=== PATIENT | female | born 1995 | race Caucasian/White ===

== ENCOUNTER 2019-11-22 00:01 | Observation (INO) | payer BC, SELFPAY ==
[2019-11-22 00:30] VITALS: BMI 35.2
--- NOTE | 2019-11-22 03:24 | OBADM ---
This patient, Liliana Ybarra, admitted to the OB room Labor/Delivery/Recovery 106 for observation. Patient/family oriented to hospital policies and general routines including ID bracelet, bed and alarms, visiting hours, pain management, procedures, bathroom and other care routines, personal items, smoking policy, room service/diet, and visiting hours. Patient/Family are encouraged to report perceived risks to care and to ask questions if they do not understand what they are told or what they should do.
--- NOTE | 2019-11-22 03:32 | PC.NURSE ---
pharmacist called and medication from [facility] discussed and confirmed.
[2019-11-22] MEDS: MORPHINE SULFATE 10 MG/ML AMP IM (03:44)
[2019-11-22 03:49] VITALS: BP 106/61; PULSE 76
[2019-11-22 04:00] VITALS: BP 93/47; PULSE 59
[2019-11-22 04:13] VITALS: BP 102/66; PULSE 66; TEMP 36.7
--- NOTE | 2019-11-26 09:00 | PM.OBTRLD ---
OB - Triage/Final Diagnosis Visit Information Reason for evaluation: threatened labor
== END 2019-11-22 04:12 | disposition home or self-care (01) ==
PROVIDERS: Admitting Provider Obstetrics & Gynecology; Visit Provider Obstetrics & Gynecology
DX: O47.1 False labor at or after 37 completed weeks of gestation (principal); Z3A.37 37 weeks gestation of pregnancy
CPT/HCPCS: 96372; G0378; G0379; J2270

== ENCOUNTER 2019-11-22 09:28 | Inpatient (IN) | payer BC, SELFPAY ==
[2019-11-22] VITALS (120 sets, daily range): BP systolic 78–143; BP diastolic 31–108; PULSE 65–198; RESP 15–20; TEMP 36.3–38.4; O2SAT 94–100
--- NOTE | 2019-11-22 10:05 | LDADM ---
This patient, Liliana Ybarra, was admitted to Labor/Delivery/Recovery 108 on 11/22/19 at 09:28. Plans for labor, pain management and were discussed with patient. Patient/family oriented to hospital policies and general routines including ID bracelet, bed and alarms, visiting hours, pain management, procedures, bathroom and other care routines, personal items, smoking policy, room service/diet and guest tray routines, security routines, and visiting hours. Patient/Family are encouraged to report perceived risks to care and to ask questions if they do not understand what they are told or what they should do. See OBIX for further documentation.
[2019-11-22 10:12] LABS: Basophils Percent Auto 0.2 % (0.2-1.2); Eosinophils Percent Auto 0.1 % (0-4.4); Hematocrit 40.9 % (37.0-47.0); Hemoglobin 13.6 g/dL (12.0-15.0); Immature Granulocyte Absolute 0.06 K/mm3 (0.00-0.031); Immature Granulocyte Percent A 0.4 % (0-0.5); Lymphocytes Absolute Auto 1.23 K/mm3 (0.9-3.2); Lymphocytes Percent Auto 7.6 % (18.3-44.2); Mean Corpuscular HGB Conc 33.3 g/dl (32-36); Mean Corpuscular Hemoglobin 29.2 pg (26-34); Mean Corpuscular Volume 87.8 fl (80-100); Mean Platelet Volume 11.2 fl (7.4-10.4); Monocytes Absolute Auto 0.9 K/mm3 (0.1-0.6); Monocytes Percent Auto 5.4 % (2.6-8.5); Neutrophils Absolute Auto 14.1 K/mm3 (1.3-6.7); Neutrophils Percent Auto 86.3 % (45.5-73.1); Platelet Count Result 238 k/mm3 (150-375); Red Blood Count 4.66 M/mm3 (4.2-5.4); Red Cell Distribution Width 13.6 % (11.5-14.5); White Blood Count 16.3 K/mm3 (4.5-10.0)
[2019-11-22] MEDS: LACTATED RINGERS 1,000 ML 125 ML IV CONT ×3 (10:13→15:38)
--- NOTE | 2019-11-22 10:27 | P.PNAN_ITS ---
Anes - Initial Pre Proc Eval Date/Time: 11/22/19 10:27 Surgeon: Ryan Villanueva MD Pre Op Diagnosis: Labor Patient Data Age: 24 Gender: F Height: Weight: Last Vital Signs Temp 36.3 C L 11/22/19 10:14 Pulse 91 11/22/19 10:15 BP 122/84 11/22/19 10:15 Allergies Allergy/AdvReac Type Severity Reaction Status Date / Time No Known Allergies Allergy Verified 11/09/19 14:21 Home Medications Medication Instructions Recorded Confirmed Type PNV cmb#95-ferrous fumarate-FA 1 tablet PO DAILY 11/09/19 11/09/19 History [] Laboratory Tests 11/22/19 11/22/19 10:06 10:06 WBC 16.3 K/mm3 H K/mm3 (4.5-10.0) RBC 4.66 M/mm3 M/mm3 (4.2-5.4) Hgb 13.6 g/dL g/dL (12.0-15.0) Hct 40.9 % % (37.0-47.0) MCV 87.8 fl fl (80-100) MCH 29.2 pg pg (26-34) MCHC 33.3 g/dl g/dl (32-36) RDW 13.6 % % (11.5-14.5) Plt Count 238 k/mm3 k/mm3 (150-375) MPV 11.2 fl H fl (7.4-10.4) Immature Gran % (Auto) 0.4 % % (0-0.5) Neut % (Auto) 86.3 % H % (45.5-73.1) Lymph % (Auto) 7.6 % L % (18.3-44.2) Nicholas % (Auto) 5.4 % % (2.6-8.5) Eos % (Auto) 0.1 % % (0-4.4) Baso % (Auto) 0.2 % % (0.2-1.2) Lymph # (Auto) 1.23 K/mm3 K/mm3 (0.9-3.2) Nicholas # (Auto) 0.9 K/mm3 H K/mm3 (0.1-0.6) Eos # (Auto) 0.0 K/mm3 K/mm3 (0-0.3) Baso # (Auto) 0.0 K/mm3 K/mm3 (0.0-0.1) Abs Immat Gran (auto) 0.06 K/mm3 H K/mm3 (0.00-0.031) Absolute Neuts (auto) 14.1 K/mm3 H K/mm3 (1.3-6.7) Absolute Nucleated RBC 0.0 K/mm3 K/mm3 (0.0-0.012) Nucleated RBC % 0.0 % % (0.0-0.2) RPR Pending Patient hx anesthesia problems: none Family hx anesthesia problems: none [facility] Family History Family History (Updated 11/09/19 @ 14:22 by Prasanna Rizzo RN) Other No pertinent family history Social History Social History Smoking status: Never smoker Second hand tobacco smoke exposure: No Substance use: never Gender identity (if verbalized by the patient): Female Spiritual care concerns: No Anes - Eval Final PreProcedure Day of Procedure 11/22/19 10:27 Patient weight: overweight Heart: regular rate and rhythm Lungs: clear to auscultation and normal air movement Airway: Mallampati scale class II Neurological: alert and oriented Last oral intake: >/= 8 hours ASA classification: II Emergent: no Anesthetic plan: proceed Anesthesia type and monitoring: regional epidural Informed Consent: The patient's anesthetic plan and its attendant risks and benefits were discussed with the patient/family/POA. Questions were solicited and answers provided to the satisfaction of the patient/family/POA.
[2019-11-22] MEDS: OXYTOCIN 30 UNITS/NS 500 ML 30 UNITS/500 ML BAG 6 UNITS IV CONT (12:54)
--- NOTE | 2019-11-22 16:35 | PM.IMHP ---
H&P: HPI History of Present Illness Chief complaint: Labor Narrative: Liliana Ybarra is a 24 year old female presented in labor early this morning with spontaneous rupture membranes and 4cm dilated. Progressed well through her labor and has pushed for 2 hours. With the pushing she has had minimal descent vacuum was placed 1 time with no further descent at this point decision was made to proceed with section. Review of Systems Review of Systems: All systems reviewed & are unremarkable except as noted in HPI and below PMFSH Family History Family History Other No pertinent family history Social History Social History Smoking status: Never smoker Second hand tobacco smoke exposure: No Substance use: never Gender identity (if verbalized by the patient): Female Spiritual care concerns: No Meds Home Medications and Allergies Home Medications Medication Instructions Recorded Confirmed Type PNV cmb#95-ferrous fumarate-FA 1 tablet PO DAILY 11/09/19 11/09/19 History [] Allergies Allergy/AdvReac Type Severity Reaction Status Date / Time No Known Allergies Allergy Verified 11/09/19 14:21 Vital Signs Vital Signs - 24 hr 11/22/19 10:14 11/22/19 10:15 11/22/19 10:30 Temperature 36.3 C L Pulse Rate 85 91 100 Blood Pressure 115/91 H 122/84 129/75 Pulse Oximetry 11/22/19 10:32 11/22/19 10:37 11/22/19 10:40 Temperature Pulse Rate 92 Blood Pressure 134/77 Pulse Oximetry 97 95 11/22/19 10:41 11/22/19 10:42 11/22/19 10:44 Temperature Pulse Rate 93 98 119 H Blood Pressure 134/82 127/67 123/77 Pulse Oximetry 97 11/22/19 10:46 11/22/19 10:47 11/22/19 10:48 Temperature Pulse Rate 136 H 107 H Blood Pressure 132/70 130/73 Pulse Oximetry 98 98 11/22/19 10:50 11/22/19 10:51 11/22/19 10:53 Temperature Pulse Rate 101 H 113 H Blood Pressure 120/67 114/64 Pulse Oximetry 99 11/22/19 10:54 11/22/19 10:55 11/22/19 10:57 Temperature Pulse Rate 120 H 119 H 100 Blood Pressure 121/71 115/70 124/68 Pulse Oximetry 11/22/19 10:58 11/22/19 11:00 11/22/19 11:03 Temperature Pulse Rate 102 H Blood Pressure 120/68 Pulse Oximetry 97 100 11/22/19 11:04 11/22/19 11:08 11/22/19 11:10 Temperature Pulse Rate 103 H 102 H Blood Pressure 133/84 119/69 Pulse Oximetry 99 11/22/19 11:13 11/22/19 11:15 11/22/19 11:18 Temperature Pulse Rate 80 Blood Pressure 117/70 Pulse Oximetry 99 99 11/22/19 11:19 11/22/19 11:23 11/22/19 11:25 Temperature Pulse Rate 106 H 95 Blood Pressure 129/77 126/76 Pulse Oximetry 100 11/22/19 11:28 11/22/19 11:30 11/22/19 11:33 Temperature Pulse Rate 109 H Blood Pressure 129/87 Pulse Oximetry 99 99 11/22/19 11:35 11/22/19 11:38 11/22/19 11:39 Temperature Pulse Rate 92 96 Blood Pressure 98/75 L 113/76 Pulse Oximetry 99 11/22/19 11:43 11/22/19 11:45 11/22/19 11:48 Temperature Pulse Rate 91 Blood Pressure 111/72 Pulse Oximetry 100 100 11/22/19 11:49 11/22/19 11:53 11/22/19 11:58 Temperature Pulse Rate Blood Pressure 108/91 H Pulse Oximetry 100 100 11/22/19 11:59 11/22/19 12:00 11/22/19 12:03 Temperature 36.8 C Pulse Rate 107 H Blood Pressure 107/74 Pulse Oximetry 100 11/22/19 12:08 11/22/19 12:13 11/22/19 12:14 Temperature Pulse Rate 91 Blood Pressure 107/69 Pulse Oximetry 98 97 11/22/19 12:18 11/22/19 12:23 11/22/19 12:28 Temperature Pulse Rate Blood Pressure Pulse Oximetry 97 100 99 11/22/19 12:30 11/22/19 12:33 11/22/19 12:38 Temperature Pulse Rate 85 Blood Pressure 107/68 Pulse Oximetry 100 99 11/22/19 12:43 11/22/19 12:44 11/22/19 12:47 Temperature Pulse Rate 91 Blood Pressure 117/77 Pulse Oximetry 98 100 11/21
--- NOTE | 2019-11-22 16:37 | PM.OBPRVD ---
OB - Delivery Note Procedure Procedure: Procedures Operation Date: 11/22/19 16:00 <No data on this case meets the specified criteria> Intrapartal events: Ceph-Pelvic Disproportion (Arrest of descent) and Abnormal Presentation (Occiput posterior) Route of delivery: Specimen: No Estimated blood loss (mL): 800 Anesthesia type: Epidural Disposition: floor Narrative: Patient prepped and draped in usual manner for this procedure. Pfannenstiel incision was made this was then carried down to the fascia which was extended bilaterally the length of the skin incision. Superiorly and inferiorly dissected away from the rectus muscle which was then bluntly dissected peritoneum was readily entered. Bladder flap was developed and uterus scored with clear fluid noted. Vertex was delivered without difficulty rest of baby was delivered cord clamped cut and baby was passed off the operative field. Uterus sugars exteriorized and placenta was removed. Uterus was cleared of membranes and clots. Uterine incision was approximated using 0 Monocryl running interlocking manner with good approximation hemostasis noted was a small 1cm right lateral edge defect into the lower segment which was also rendered hemostatic using a 0 Monocryl running interlocking manner. Uterus was turned to the abdomen cleared of serosanguineous fluid and clots and the fascia was approximated 0 Vicryl left angle midline right of the midline subcutaneous tissue was approximated 0 plain suture and clinton were used to approximate skin edges. Also noted was the urine was blood tinged as had been high prior to delivery due to the extended pushing. [place] Baby Weeks of gestation at delivery: 37 Infant gender: Male Weight (pounds): 6 Weight (ounces): 6 score one minute: 8 score five minutes: 9
--- NOTE | 2019-11-22 17:27 | PC.NURSE ---
5355-Vaginal packing removed, no clots or bleeding
--- NOTE | 2019-11-22 19:15 | OBPPTRN ---
Patient transferred to post room #279 via stretcher. Support person present. Oriented to unit, room, information board, rooming in, admission packet and security measures. Patient verbalizes understanding. Infant with patient.
[2019-11-22] MEDS: KETOROLAC 30 MG/ML VIAL (*BKC) IV PUSH (19:48)
[2019-11-22] MEDS: KCL 20 MEQ/D5/0.45% SOD CHL 1,000 ML 125 ML IV CONT (21:04)
[2019-11-23 04:00] VITALS: BP 111/73; PULSE 102; RESP 16; TEMP 36.8; O2SAT 98
[2019-11-23] MEDS: IBUPROFEN 600 MG TABLET PO ×3 (04:47→23:48)
[2019-11-23 05:40] LABS: Basophils Absolute Auto 0.1 K/mm3 (0.0-0.1); Basophils Percent Auto 0.3 % (0.2-1.2); Eosinophils Percent Auto 0.1 % (0-4.4); Hematocrit 33.7 % (37.0-47.0); Hemoglobin 10.8 g/dL (12.0-15.0); Immature Granulocyte Absolute 0.07 K/mm3 (0.00-0.031); Immature Granulocyte Percent A 0.4 % (0-0.5); Lymphocytes Absolute Auto 1.28 K/mm3 (0.9-3.2); Lymphocytes Percent Auto 7.3 % (18.3-44.2); Mean Corpuscular Volume 90.6 fl (80-100); Mean Platelet Volume 11.2 fl (7.4-10.4); Monocytes Percent Auto 5.8 % (2.6-8.5); Neutrophils Percent Auto 86.1 % (45.5-73.1); Platelet Count Result 189 k/mm3 (150-375); Red Blood Count 3.72 M/mm3 (4.2-5.4); Red Cell Distribution Width 13.7 % (11.5-14.5); White Blood Count 17.5 K/mm3 (4.5-10.0)
[2019-11-23] MEDS: MULTIVIT/MIN/PREN/FOL AC/IRON TABLET 1 TAB PO (06:56)
[2019-11-23] MEDS: DOCUSATE SODIUM 100 MG CAPSULE PO ×2 (06:56→16:01)
[2019-11-23 08:50] VITALS: BP 95/56; PULSE 60; RESP 18; TEMP 36.7; O2SAT 97
--- NOTE | 2019-11-23 11:08 | P.PNOB_ITS ---
OB - PN: Subj Subjective Date/time seen: 11/23/19 11:08 Liliana is a 24yo now P1001 s/p pLTCS 2/2 arrest of descent. POD#1 This morning, she reports doing well. Her pain is controlled on the PO meds. She is ambulating w/o s/sx of anemia; already showered. She tolerated regular diet w/o issues. Her bleeding is normal. She is voiding without issue. She is breast feeding. She would like her son to get circumcised today. OB - PN: Obj Data Labs CBC & Chem 7: 11/23/19 04:46 Labs: Laboratory Results - last 24 hr 11/22/19 11/23/19 10:06 04:46 WBC 17.5 H RBC 3.72 L Hgb 10.8 L Hct 33.7 L MCV 90.6 MCH 29.0 MCHC 32.0 RDW 13.7 Plt Count 189 MPV 11.2 H Immature Gran % (Auto) 0.4 Neut % (Auto) 86.1 H Lymph % (Auto) 7.3 L Tripp % (Auto) 5.8 Eos % (Auto) 0.1 Baso % (Auto) 0.3 Lymph # (Auto) 1.28 Tripp # (Auto) 1.0 H Eos # (Auto) 0.0 Baso # (Auto) 0.1 Abs Immat Gran (auto) 0.07 H Absolute Neuts (auto) 15.0 H Absolute Nucleated RBC 0.0 Nucleated RBC % 0.0 Blood Type O Positive Antibody Screen Negative OB - PN A/P Assessment and Plan (1) Arrest of descent, delivered, current hospitalization: Code(s): O62.1 - Secondary uterine inertia Status: Acute Plan day: 1 Plan: routine care Comments: - Routine care; meeting appropriate milestones - Vitals, labs, and abdominal exam normal - Pain meds PRN - Regular diet - Possible discharge home tomorrow Time Spent With Patient Time: Total time spent is greater than 50% in coordination of care (as documented) at patient's floor/unit and/or counseling patient: Review of Systems Constitutional: Constitutional: Denies body ache(s) and Denies chills Cardiovascular: Cardiovascular: Denies rapid heart rate Respiratory: Respiratory: Denies cough and Denies dyspnea Gastrointestinal: Gastrointestinal: Denies nausea and Denies vomiting Genitourinary: Genitourinary: Reports pelvic pain Neurologic: Denies headache(s) Exam Const: General: comfortable, no acute distress, alert and awake Chest: Breast/axilla inspection: normal inspection of the breasts Resp: Effort & Inspection: normal respiratory effort Auscultation: clear to auscultation bilaterally Cardio: Rate: regular rate GI: Auscultation: normal bowel sounds Other: non-distended, soft, appropriately tender, Pfannenstiell incision c/d/i and covered with clinton : Other: fundus firm at umbilicus Psych: Appearance: grossly normal Affect: normal affect Attitude: cooperative
[2019-11-23 13:45] VITALS: BP 114/64; PULSE 83; RESP 98; TEMP 36.9; O2SAT 97
[2019-11-23] MEDS: ACETAMINOPHEN 325 MG TABLET 650 MG PO ×2 (16:02→21:23)
[2019-11-23] MEDS: TETANUS,DIPHTHERIA,AC PERTUSSIS ADULT (0.5 ML) BOOSTRIX IM (16:02)
--- NOTE | 2019-11-23 17:35 | WPDANLDPN2 ---
Anes-Prog Note L&D Date/Time: 11/23/19 17:35 Comfortable throughout: labor and section Neuraxial method: epidural Epidural/Spinal procedure site: clean & non-tender Neuro status: Neuro function grossly intact. Cardiovascular status: normal Respiratory status: normal Airway patency: baseline Mental status: baseline Post-Op hydration status: normal Vital Signs: Last Vital Signs Temp 36.9 C 11/23/19 13:45 Pulse 83 11/23/19 13:45 Resp 98 H 11/23/19 13:45 BP 114/64 11/23/19 13:45 Pulse Ox 97 11/23/19 13:45 I/O: Intake & Output 11/23/19 11/23/19 11/23/19 07:59 15:59 23:59 Intake Total 240 Output Total 600 Balance -600 240 Post-procedural complaints: none Patient feedback: Patient satisfied with anesthetic care.
--- NOTE | 2019-11-23 17:35 | WPDANLDNPN2 ---
Anes-Prog Note L&D-Neuraxial Date/Time: 11/23/19 17:35 Neuraxial medications: epidural PF morphine Opiod-related complaints: none Patient feedback: Patient satisfied with post-operative pain management.
[2019-11-23 19:49] VITALS: BP 99/60; PULSE 73; RESP 18; TEMP 36.8
[2019-11-24] MEDS: ACETAMINOPHEN 325 MG TABLET 650 MG PO ×2 (05:48→16:23)
[2019-11-24] MEDS: IBUPROFEN 600 MG TABLET PO ×2 (05:48→16:23)
[2019-11-24 08:00] VITALS: BP 113/67; PULSE 69; RESP 18; TEMP 36.2; O2SAT 97
[2019-11-24] MEDS: MULTIVIT/MIN/PREN/FOL AC/IRON TABLET 1 TAB PO (08:11)
[2019-11-24] MEDS: MEASLES,MUMPS,RUBELLA VACCINE 0.5 ML VIAL SUB-Q (08:11)
[2019-11-24] MEDS: DOCUSATE SODIUM 100 MG CAPSULE PO ×2 (08:11→16:23)
--- NOTE | 2019-11-24 09:19 | PM.OBPNVD ---
OB - PN: Subj Subjective Date/time seen: 11/24/19 09:19 Liliana is a 24yo now P1001 s/p pLTCS 2/2 arrest of descent. POD#2 This morning, she reports doing well and would like to go home. Her pain is controlled on the PO meds. She is ambulating w/o s/sx of anemia. She's tolerating regular diet w/o issues. Her bleeding is normal. She is voiding without issue. She is passing flatus, no BM. She is breast feeding. OB - PN: Obj Data Labs CBC & Chem 7: 11/23/19 04:46 OB - PN A/P Assessment and Plan (1) Arrest of descent, delivered, current hospitalization: Code(s): O62.1 - Secondary uterine inertia Status: Acute Plan day: 2 Plan: discharge home Comments: - Meeting all milestones and desires to be discharged home today. - Labs/vitals/exam normal - Pain/fever/bleeding/HTN return precautions discussed. Pelvic rest and no heavy lifting >10lbs. Take medications as prescribed - F/u in 7-10 days for staple removal. Time Spent With Patient Time: Total time spent is greater than 50% in coordination of care (as documented) at patient's floor/unit and/or counseling patient: Review of Systems Constitutional: Constitutional: Denies body ache(s) and Denies chills Cardiovascular: Cardiovascular: Denies rapid heart rate Respiratory: Respiratory: Denies cough and Denies dyspnea Gastrointestinal: Gastrointestinal: Denies abdominal pain, Denies nausea and Denies vomiting Genitourinary: Genitourinary: Reports pelvic pain Comments: normal bleeding Neurologic: Denies headache(s) Exam Const: General: comfortable, no acute distress, alert and awake Resp: Effort & Inspection: normal respiratory effort Auscultation: clear to auscultation bilaterally Cardio: Rate: regular rate GI: Auscultation: normal bowel sounds Other: non-distended, soft, Pfannenstiel incision intact w/o erythema, drainage, covered with clinton. : Other: fundus firm below umbilicus Psych: Appearance: grossly normal Attitude: cooperative
--- NOTE | 2019-11-24 12:11 | PC.NURSE ---
Patient viewed the discharge video Mother & Baby Care, The First Two Weeks . Patient was given the opportunity and encouraged to ask questions. Patient verbalized understanding of information shared and has been given the mother/baby guide for home reference.
[2019-11-24 21:00] VITALS: BP 111/83; PULSE 80; RESP 16; TEMP 36.8; O2SAT 100
[2019-11-25] MEDS: IBUPROFEN 600 MG TABLET PO ×2 (02:30→10:01)
[2019-11-25 07:06] LABS: Rapid Plasma Reagin Non-Reactive (NonReactive)
[2019-11-25 07:40] VITALS: BP 119/88; PULSE 66; RESP 18; TEMP 36.7
--- NOTE | 2019-11-25 08:00 | PC.NURSE ---
Pt introductions made and plan of care discussed per post op c section, pain management, breast feeding, daily care activities and pending discharge to home. PT verbalized understanding of such care.
[2019-11-25] MEDS: SIMETHICONE 80 MG TAB.CHEW PO (10:00)
[2019-11-25] MEDS: MULTIVIT/MIN/PREN/FOL AC/IRON TABLET 1 TAB PO (10:00)
[2019-11-25] MEDS: DOCUSATE SODIUM 100 MG CAPSULE PO (10:01)
[2019-11-25 10:02] VITALS: PULSE 66; RESP 18; O2SAT 100
--- NOTE | 2019-11-25 10:45 | PC.NURSE ---
PT received discharge instructions per procotol and verbalized understanding of such instructions.
--- NOTE | 2019-11-25 11:18 | PC.NURSE ---
PT discharged to home ambulatory accompanied by spouse and to waiting car. Follow up appointments confirmed
--- NOTE | 2019-11-27 07:19 | PM.OBDSVD ---
DS: Diagnosis Admitting Diagnosis Admitting Diagnosis: Encounter for supervision of normal , unspecified, unspecified trimester OB - DS: Summary OB Procedures : None OB Procedures Intrapartum: OB Procedures: : None Peripartum Data Procedures: Procedures Operation Date: 11/22/19 16:00 Actual Procedures Side Surgeon p Section Ryan Villanueva MD Time Spent with Patient Time attestation: Total time spent providing and/or coordinating discharge services: Discharge Plan Discharge Attending physician on discharge: Cheri Leyva Consulting providers: Eran Young Discharging Clinician: Cheri Leyva Anticipated Discharge Date/Time: 11/24/19 14:00 Patient Disposition: Home, Self-Care Activity: pelvic rest Diet: regular Discharge Instructions: Education: Mom and Baby Guide Given to: Mother Follow-Up: Call your delivering provider's office for an appointment to be seen in: 1 Week Mom and baby should come to the [facility] for the follow-up appointment. Appointment Date/Time: November 27, 2019 at 10:00 am What to expect at your follow-up visit: Blood Pressure Check Call [phone] if you are unable to keep your appointment time. BREAST CARE: 1. Wear a snug supportive bra. 2. For engorgement discomfort: Breast Feeding: A. Apply warm moist washcloths B. Express milk as needed to relieve engorgement C. Wear loose clothing Bottle Feeding: A. May apply ice packs 3. For sore nipples: A. Identify correct latch-on B. Apply warm moist washcloths before and after nursing C. Air dry nipples after nursing D. May apply Lansinoh cream to nipples ABDOMINAL INCISION: (if applicable) 1. Allow incision to air dry 2. Do NOT use lotions for powders on your incision 3. When showering, allow soap and water to run over the incision, but do not wash incision PERINEAL CARE: 1. Until bleeding stops, use your davey bottle after urinating 2. Change your pad frequently throughout the day 3. You may take sitz baths several times a day (fill your bathtub with warm water and soak for 20 minutes.) Do NOT bathe in the water 4. No tub baths until seen by your physician - You may shower ACTIVITY: 1. Rest as much as possible. 2. Do not exercise or lift anything heavier than your baby (such as laundry or other children.) 3. Avoid stairs or driving as much as possible. 4. Do not put anything into the vagina. No douching, tampons, or sexual activity until seen by physician. NOTIFY PHYSICIAN IF YOU HAVE ANY QUESTIONS OR IF ANY OF THE FOLLOWING SYMPTOMS OCCUR: 1. If your incision becomes red, swollen, or more painful than what you have experienced in the hospital. 2. If your vaginal bleeding becomes foul smelling. 3. If your vaginal bleeding becomes more heavy than a period or if your bleeding changes from pink to bright red. However, you may pass an occasional walnut-sized clot once or twice for the first week . 4. If you experience a sharp, shooting pain in you calves. 5. If you discover a hard, reddened area on your breast or if you experience flu-like symptoms. DIET: 1. Eat regular, well-balanced meals. 2. Drink plenty of fluids daily. If , drink to thirst.Pelvic rest, no heavy lifting >10lbs. Patient Instructions: Antibiotic Form Stand Alone Forms: General Discharge Information Follow-up/Referrals: Ryan Villanueva MD [Physician] - 1 Week (Follow up in 7-10 days for staple removal ) Discharge Medications: New acetaminophen [Mapap (acetaminophen)] 325 mg Tablet 650 mg PO Q6H PRN (Reason: Mild Pain (1-3)) 10 Days Qty: 40 RF: 0 hydrocodone-acetaminophen 5-325 mg Tablet 1 tab PO Q4H PRN (Reason: Moderate Pain (4-6)) 3 Days Qty: 18 RF: 0 docusate sodium 100 mg Capsule 100 mg PO BID 10 Days Qty: 20 RF:
[2019-11-27 10:18] VITALS: BP 130/86; PULSE 62; RESP 20; TEMP 36.4; O2SAT 100
== END 2019-11-25 11:18 | disposition home or self-care (01) | DRG 787 ==
LOC: ANHOB2 11-24 09:25 → ANHLDR 11-26 15:46 → ANHOB2 11-26 15:46
PROVIDERS: Obstetrics & Gynecology; Admitting Provider Obstetrics & Gynecology; Visit Provider Obstetrics & Gynecology
PROC: 10D00Z1 Extraction of Products of Conception, Low, Open Approach (ICD-10-PCS; CPT 59514; principal; 2019-11-22 16:00)
DX: O65.9 Obstructed labor due to maternal pelvic abnormality, unspecified (principal); O71.4 Obstetric high vaginal laceration alone; Z3A.37 37 weeks gestation of pregnancy; Z37.0 Single live birth; Z23 Encounter for immunization; O64.0XX0 Obstructed labor due to incomplete rotation of fetal head, not applicable or unspecified; O66.5 Attempted application of vacuum extractor and forceps; O62.1 Secondary uterine inertia; O32.4XX0 Maternal care for high head at term, not applicable or unspecified
CPT/HCPCS: 36415; 85025; 86592; 86850; 86900; 86901; 90710; 90715; A9270; J0131; J0690; J1885; J2405; J2590; J2795; J3010; J3480; J7120

== ENCOUNTER → 2021-12-02 15:57 | Outpatient (CLI) | payer BC, SELFPAY ==
--- NOTE | ~2021-12-02 | US_ITS ---
EXAMINATION: US OB /maternal detail DATE: 12/02/2021 16:31 INDICATION: Second trimester anatomic survey TECHNIQUE: Real-time ultrasound of the pelvis was performed. COMPARISON: 09/13/2021 FINDINGS: There is a single living fetus in breech presentation. The placenta is posterior and 5.3 cm from the internal cervical os. heart rate is 148 beats per minute (bpm). cardiac activity and fet al movement are noted. The amniotic fluid index is subjectively normal. The following anatomy was identified as normal: 4 chamber heart 3 vessel cord cord insertion kidneys urinary bladder stomach spine diaphragm ventricles cisterna magna cerebellum The following biometric data were obtained: Biparietal diameter (BPD): 5.4 cm; head circumference (HC): 20.1 cm; abdominal circumference (AC): 18 .4 cm; femur length (FL): 3.9 cm. These measurements are concordant. Estimated weight is 353 g +/- 80 g, which correlates with the 40th percentile when 04/01/2022 is used as estimated date of delivery. As single measurements, these parameters are each equal to the following estimated gestational ages w ith ranges of +/- 2 standard deviations: BPD: 22 weeks 3 days ( 20 weeks 5 days - 24 weeks 1 days). HC: 22 weeks 2 days ( 20 weeks 5 days - 23 weeks 5 days). AC: 23 weeks 1 days ( 21 weeks 1 days - 25 weeks 2 days). FL: 22 weeks 3 days ( 20 weeks 5 days - 24 weeks 2 days). estimated gestational age based solely on measurements from this exam is 22 weeks 4 days +/- 1 weeks 4 days. IMPRESSION: 1. Single living fetus in breech presentation. 2. Estimated weight is 353 g +/- 80 g, which correlates with the 40th percentile when 04/01/2022 is used as estimated date of delivery. Reviewed, dictated and finalized at location A. IMPRESSION: 1. Single living fetus in breech presentation. 2. Estimated weight is 353 g +/- 80 g, which correlates with the 40th per centile when 04/01/2022 is used as estimated date of delivery.
== END ==
PROVIDERS: PCP Obstetrics & Gynecology; Visit Provider Obstetrics & Gynecology
DX: Z34.92 Encounter for supervision of normal pregnancy, unspecified, second trimester (principal); Z3A.22 22 weeks gestation of pregnancy
CPT/HCPCS: 76805

== ENCOUNTER 2022-03-23 06:18 | Inpatient (IN) | payer BC, SELFPAY ==
--- NOTE | 2022-02-28 16:00 | PC.NURSE ---
Verified with OR schedule and patient C/S 03/23/22 at 1030 Patient given requisition for lab draw on 03/22/22
--- NOTE | 2022-03-22 15:15 | PM.IMHP ---
H&P: HPI History of Present Illness Date/Time: 03/22/22 15:15 26-year-old 2 para 1001 female presents at 39 and half weeks gestation for repeat delivery. records are on the chart and no significant abnormalities with her care. We have offered and she has declined tubal ligation. Chief Complaint: Review of Systems Review of Systems: All systems reviewed & are unremarkable except as noted in HPI and below PMFSH Past Medical History Medical History Suppression of menstruation Surgical History Surgical History Delivery by section (11/22/19) primary c/s Breech Family History Family History Mother Hypertension Diabetes mellitus Father Heart attack Social History Social History Smoking status: Never smoker Second hand tobacco smoke exposure: No Substance use: never Gender identity (if verbalized by the patient): Female Spiritual care concerns: No Meds Home Medications and Allergies Home Medications Medication Instructions Recorded Confirmed Type vit no.95-ferrous 1 tablet PO DAILY 11/09/19 03/15/22 History fumarate 28 mg-folic acid 800 mcg tablet () Allergies Allergy/AdvReac Type Severity Reaction Status Date / Time No Known Allergies Allergy Verified 03/15/22 17:17 Exam Const: General: cooperative, healthy appearing and comfortable Resp: Effort & Inspection: normal respiratory effort Auscultation: clear to auscultation bilaterally Cardio: Rate: regular rate Rhythm: regular rhythm GI: Inspection: normal to inspection Auscultation: normal bowel sounds : Bimanual exam- vagina & uterus: enlarged ( fundal height 39cm heart tones 140) Assessment and Plan Assessment and plan (1) 39 weeks gestation of : Code(s): Z3A.39 - 39 weeks gestation of Status: Acute (2) Previous delivery affecting : Code(s): O34.219 - Maternal care for unspecified type scar from previous delivery Status: Acute Assessment and Plan: proceed with repeat low transverse section.
[2022-03-23] VITALS (56 sets, daily range): BP systolic 92–119; BP diastolic 42–79; PULSE 53–167; RESP 16–20; TEMP 36.3–36.6; O2SAT 95–100; BMI 35.3
--- OUTSIDE RECORDS SUMMARY | 2022-03-23 06:22 | XMS_ITS ---
:1995 Author Care Team Providers Name Role Phone Ryan Villanueva Primary Care Provider Unavailable Allergies Code Code System Name Reaction Severity Status Onset NKDA ? Medications Name Status Start Date Stop Date ? ? DOK 100 mg capsule Completed ? 12/13/2019 TAKE 1 CAPSULE BY MOUTH TWICE DAILY FOR 10 DAYS Flucelvax Quad (PF) 60 mcg (15 mcg x 4)/0.5 mL IM Comp leted ? 02/26/2021 syringe hydrocodone 5 mg-acetaminophen 325 mg tablet Completed ? 12/13/2019 TAKE 1 TABLET BY MOUTH EVERY 4 HOURS FO R 3 DAYS NEEDED FOR MODERATE PAIN(4 6) ibuprofen 600 mg tablet Completed ? 12/13/19 20 TAKE 1 TABLET BY MOUTH EVERY 6 HOURS FOR 10 DAYS NEEDED FOR CRAMPING Lo Loestrin Fe 1 mg-10 mcg (24)/10 mcg (2) tablet Completed ? 04/30/2018 Problems Name Status Onset Date Source ? Unknown 04/24/2019 History Procedures Date Name Performed by ? 11/22/2019 Section Information not avai lable Results Lab Results None recorded. Past Encounters 02/26/2021 Gynecologic Examination Ryan Villanueva MD: [address] , [address], [place] [address], Ph. Social History Tobacco Smoking Status Never Smoker Vaccine List Vaccine Type HPV, quadrivalent 11/29/2014 05/24/2015 HPV9 10/30/2014 Notes: COVID vaccine not received -lw Plan of Care
--- OUTSIDE RECORDS SUMMARY | 2022-03-23 06:22 | XMS_ITS ---
:1995 Author Care Team Providers Name Role Phone SIMA SHEIKH Primary Care Provider [phone] Allergies Code Code System Name Reaction Severity Status Onset NKDA ? Medications Name Status Start Date Stop Date ? ? DOK 100 mg capsule Completed ? 12/13/2019 TAKE 1 CAPSULE BY MOUTH TWICE DAILY FOR 10 DAYS Flucelvax Quad (PF) 60 mcg (15 mcg x 4)/0.5 mL Active ? Not available IM syringe hydrocodone 5 mg-acetaminophen 325 mg tablet Completed ? 12/13/2019 TAKE 1 TABLET BY MOUTH EVERY 4 HOURS FO R 3 DAYS NEEDED FOR MODERATE PAIN(4 6) ibuprofen 600 mg tablet Completed ? 12/13/19 20 TAKE 1 TABLET BY MOUTH EVERY 6 HOURS FOR 10 DAYS NEEDED FOR CRAMPING Lo Loestrin Fe 1 mg-10 mcg (24)/10 mcg (2) tablet Completed ? 04/30/2018 Notes: OTC PNV Problems Name Status Onset Date Source ? Unknown 04/24/2019 ? Procedures Date Name Performed by ? 11/22/2019 Section Information not avai labsara Notes: primary c/s 04/15/2019 US, Obstetric, Transvaginal In-House Res ults For Internal Use Onl y Do Not Delete/merge [id number] Results Lab Results Date Name Specimen Result Interpretation Description Value Range Status Address ? 01/27/2020 Pap, IG + ? Diagnosis: comment ? Roshni posey [facility]: Reflex HPV 120 Hi lls (16+18+45) Efren Jaeger ? ? ? Specimen c
[2022-03-23 07:09] LABS: Basophils Percent Auto 0.3 % (0.2-1.2); Eosinophils Absolute Auto 0.3 K/mm3 (0-0.3); Eosinophils Percent Auto 3.1 % (0-4.4); Hemoglobin 12.6 g/dL (12.0-15.0); Immature Granulocyte Absolute 0.04 K/mm3 (0.00-0.031); Immature Granulocyte Percent A 0.4 % (0-0.5); Lymphocytes Percent Auto 14.7 % (18.3-44.2); Mean Corpuscular HGB Conc 33.2 g/dl (32-36); Mean Corpuscular Hemoglobin 29.2 pg (26-34); Mean Corpuscular Volume 88.2 fl (80-100); Mean Platelet Volume 10.2 fl (7.4-10.4); Monocytes Absolute Auto 0.6 K/mm3 (0.1-0.6); Monocytes Percent Auto 6.1 % (2.6-8.5); Neutrophils Absolute Auto 7.7 K/mm3 (1.3-6.7); Neutrophils Percent Auto 75.4 % (45.5-73.1); Platelet Count Result 239 k/mm3 (150-375); Red Blood Count 4.31 M/mm3 (4.2-5.4); Red Cell Distribution Width 12.9 % (11.5-14.5); White Blood Count 10.2 K/mm3 (4.5-10.0)
[2022-03-23] MEDS: LACTATED RINGERS 1,000 ML 125 ML IV CONT (07:15)
--- NOTE | 2022-03-23 07:29 | WPDHPUPDATE1 ---
History and Physical Update Update Date/Time: 03/23/22 07:29 History and Physical has been reviewed, including an updated exam of the patient. There are NO changes in the patient's condition. Risks, benefits, and alternatives have been discussed and questions answered. Patient agrees to proceed with procedure.
[2022-03-23 07:57] LABS: Rapid Plasma Reagin Non-Reactive (NonReactive)
--- NOTE | 2022-03-23 08:38 | WPDANESEPP ---
Anes - Eval Pre Procedure Procedure: Operation Date: 03/23/22 09:00 Proposed Procedures p Repeat Section - Ryan Villanueva MD Date/Time: 03/23/22 08:38 Surgeon: Rich Preop Diagnosis: , previous Section Pre Op Diagnosis: c/s Patient Data Age: 26 Gender: F Height: 1.52 m Weight: 82 kg Last Vital Signs Pulse 67 03/23/22 08:16 BP 118/71 03/23/22 08:16 O2 Del Method Room Air 03/23/22 07:19 Allergies Allergy/AdvReac Type Severity Reaction Status Date / Time No Known Allergies Allergy Verified 03/15/22 17:17 Home Medications Medication Instructions Recorded Confirmed Type vit no.95-ferrous 1 tablet PO DAILY 11/09/19 03/23/22 History fumarate 28 mg-folic acid 800 mcg tablet () Laboratory Tests 03/23/22 03/23/22 03/23/22 06:48 06:48 07:32 WBC 10.2 K/mm3 H K/mm3 (4.5-10.0) RBC 4.31 M/mm3 M/mm3 (4.2-5.4) Hgb 12.6 g/dL g/dL (12.0-15.0) Hct 38.0 % % (37.0-47.0) MCV 88.2 fl fl (80-100) MCH 29.2 pg pg (26-34) MCHC 33.2 g/dl g/dl (32-36) RDW 12.9 % % (11.5-14.5) Plt Count 239 k/mm3 k/mm3 (150-375) MPV 10.2 fl fl (7.4-10.4) Immature Gran % (Auto) 0.4 % % (0-0.5) Neut % (Auto) 75.4 % H % (45.5-73.1) Lymph % (Auto) 14.7 % L % (18.3-44.2) [place] % (Auto) 6.1 % % (2.6-8.5) Eos % (Auto) 3.1 % % (0-4.4) Baso % (Auto) 0.3 % % (0.2-1.2) Lymph # (Auto) 1.50 K/mm3 K/mm3 (0.9-3.2) [place] # (Auto) 0.6 K/mm3 K/mm3 (0.1-0.6) Eos # (Auto) 0.3 K/mm3 K/mm3 (0-0.3) Baso # (Auto) 0.0 K/mm3 K/mm3 (0.0-0.1) Abs Immat Gran (auto) 0.04 K/mm3 H K/mm3 (0.00-0.031) Absolute Neuts (auto) 7.7 K/mm3 H K/mm3 (1.3-6.7) Absolute Nucleated RBC 0.0 K/mm3 K/mm3 (0.0-0.012) Nucleated RBC % 0.0 % % (0.0-0.2) RPR Non-reactive (NonReactive) Blood Type O Positive Antibody Screen Pending Patient hx anesthesia problems: none Family hx anesthesia problems: none Results Review: All pre-operative results and documents have been reviewed as part of the pre-operative evaluation. [facility] Past Medical History Medical History Suppression of menstruation Surgical History Surgical History Delivery by section (11/22/19) primary c/s Breech Family History Family History Mother Hypertension Diabetes mellitus Father Heart attack Social History Social History Smoking status: Never smoker Second hand tobacco smoke exposure: No Substance use: never Gender identity (if verbalized by the patient): Female Spiritual care concerns: No Exam Day of Procedure 03/23/22 08:38 Patient weight: obese Neurological: alert and oriented
--- NOTE | 2022-03-23 08:41 | WPDANESEPPF ---
Anes - Initial Pre Proc Eval Procedure: Operation Date: 03/23/22 09:00 Proposed Procedures p Repeat Section - Ryan Villanueva MD Date/Time: 03/23/22 08:41 Surgeon: Ryan Villanueva MD Pre Op Diagnosis: c/s Patient Data Age: 26 Gender: F Height: 1.52 m Weight: 82 kg Last Vital Signs Pulse 67 03/23/22 08:16 BP 118/71 03/23/22 08:16 O2 Del Method Room Air 03/23/22 07:19 Allergies Allergy/AdvReac Type Severity Reaction Status Date / Time No Known Allergies Allergy Verified 03/15/22 17:17 Home Medications Medication Instructions Recorded Confirmed Type vit no.95-ferrous 1 tablet PO DAILY 11/09/19 03/23/22 History fumarate 28 mg-folic acid 800 mcg tablet () Laboratory Tests 03/23/22 03/23/22 03/23/22 06:48 06:48 07:32 WBC 10.2 K/mm3 H K/mm3 (4.5-10.0) RBC 4.31 M/mm3 M/mm3 (4.2-5.4) Hgb 12.6 g/dL g/dL (12.0-15.0) Hct 38.0 % % (37.0-47.0) MCV 88.2 fl fl (80-100) MCH 29.2 pg pg (26-34) MCHC 33.2 g/dl g/dl (32-36) RDW 12.9 % % (11.5-14.5) Plt Count 239 k/mm3 k/mm3 (150-375) MPV 10.2 fl fl (7.4-10.4) Immature Gran % (Auto) 0.4 % % (0-0.5) Neut % (Auto) 75.4 % H % (45.5-73.1) Lymph % (Auto) 14.7 % L % (18.3-44.2) [place] % (Auto) 6.1 % % (2.6-8.5) Eos % (Auto) 3.1 % % (0-4.4) Baso % (Auto) 0.3 % % (0.2-1.2) Lymph # (Auto) 1.50 K/mm3 K/mm3 (0.9-3.2) [place] # (Auto) 0.6 K/mm3 K/mm3 (0.1-0.6) Eos # (Auto) 0.3 K/mm3 K/mm3 (0-0.3) Baso # (Auto) 0.0 K/mm3 K/mm3 (0.0-0.1) Abs Immat Gran (auto) 0.04 K/mm3 H K/mm3 (0.00-0.031) Absolute Neuts (auto) 7.7 K/mm3 H K/mm3 (1.3-6.7) Absolute Nucleated RBC 0.0 K/mm3 K/mm3 (0.0-0.012) Nucleated RBC % 0.0 % % (0.0-0.2) RPR Non-reactive (NonReactive) Blood Type O Positive Antibody Screen Negative Patient hx anesthesia problems: none Family hx anesthesia problems: none Results Review: All pre-operative results and documents have been reviewed as part of the pre-operative evaluation. [facility] Past Medical History Medical History Suppression of menstruation Surgical History Surgical History Delivery by section (11/22/19) primary c/s Breech Family History Family History Mother Hypertension Diabetes mellitus Father Heart attack Social History Social History Smoking status: Never smoker Second hand tobacco smoke exposure: No Substance use: never Gender identity (if verbalized by the patient): Female Spiritual care concerns: No Anes - Eval Final PreProcedure Day of Procedure 03/23/22 08:41 Patient weight: obese Heart: regular rate and rhythm Lungs: clear to auscultation Airway: Mallampati scale class II Neurological: alert and oriented Last oral intake: >/= 8 hours ASA classification: II Emergent: no Anesthetic plan: proceed Anesthesia type and monitoring: regional spinal and standard monitoring Results Review: All pre-operative results and documents have been reviewed as part of the pre-operative evaluation. Informed Consent: The patient's anesthetic plan and its attendant risks and benefits were discussed with the patient/family/POA. Questions were solicited and answers provided to the satisfaction of the patient/family/POA.
--- NOTE | 2022-03-23 10:08 | P.PCNOB_ITS ---
OB - Delivery Note Procedure Procedure: Procedures Operation Date: 03/23/22 09:00 <No data on this case meets the specified criteria> Events: Previous Delivery Route of delivery: Specimen: Yes Quantitative Blood Loss (ml): 385 Anesthesia type: Spinal Disposition: Floor Complications: None Narrative: Patient was prepped and draped in usual manner for this procedure. Pfannenstiel incision was made and carried down to the fascia which was incised bilaterally the length of the skin incision. Superiorly and inferiorly the fascia was then dissected away from the rectus muscles. Peritoneum was readily entered bladder flap developed without difficulty. Low transverse incision was made with clear fluid noted and this was extended the length of the lower segment. Vertex was delivered without difficulty the rest of baby as well. Cord clamped and cut and baby was passed off the operative field and the placenta was removed manually. Uterus was evacuated of clots and membranes and approximated using 0 Vicryl in a running interlocking manner with good approximation and hemostasis noted. Of note uterus was closed with 0 Monocryl, not 0 Vicryl. 0 Vicryl was used to approximate the fascia in a running manner which was done after all subfascial tissue was noted be hemostatic upon return of the uterus to the abdominal cavity. Subcutaneous tissue was approximated using 0 plain suture and clinton then used to approximate the skin edges. Patient was then sent to recovery room in stable condition. [place] Baby Weeks of gestation at delivery: 39 Infant gender: Female Weight (pounds): 6 Weight (ounces): 9 presentation: vertex Placenta delivery description: Manual Removal Cord Vessel Description: 3 Vessels score one minute: 9 score five minutes: 9 AMG Delivery Billing Delivery Delivery: Delivery Charge
[2022-03-23] MEDS: OXYTOCIN 30 UNITS/NS 500 ML 30 UNITS/500 ML BAG 125 UNITS IV CONT (10:55)
[2022-03-23] MEDS: LORATADINE 10 MG TABLET (10:56)
[2022-03-23] MEDS: KETOROLAC 30 MG/ML VIAL (*BKC) 15 MG IV PUSH (10:58)
[2022-03-23] MEDS: MORPHINE SULFATE INJ (*CRX) 10 MG/ML AMP 3 MG IV PUSH (12:15)
[2022-03-23] MEDS: KETOROLAC 30 MG/ML VIAL (*BKC) IV PUSH (13:48)
[2022-03-23] MEDS: ONDANSETRON INJ 4 MG/2 ML VIAL IV PUSH (13:56)
--- NOTE | 2022-03-23 13:58 | OBPPTRN ---
Patient transferred to post room # 284 via stretcher accompanied by infant and support person. Oriented to unit, room, information board, rooming in, admission packet and security measures. PT introductions made and plan of care discussed per post op c section, pain management, breast feeding, daily care activities. PT and spouse both recipients of such instructions this shift and no barriers to learning identified at this time. Patient verbalizes understanding.
[2022-03-23] MEDS: DEXTROSE 5%/0.45% SOD CHL 1,000 ML 125 ML IV CONT (15:40)
[2022-03-23] MEDS: LANOLIN (LANSINOH) 7.5 GM CREAM 1 APPLIC TOPICAL (15:41)
[2022-03-23] MEDS: SIMETHICONE 80 MG TAB.CHEW PO (17:14)
[2022-03-23] MEDS: DOCUSATE SODIUM 100 MG CAPSULE PO (17:14)
[2022-03-23] MEDS: IBUPROFEN 600 MG TABLET PO (22:00)
[2022-03-24 04:45] VITALS: BP 113/75; PULSE 86; RESP 18; TEMP 36.3; O2SAT 98
[2022-03-24 05:31] LABS: Basophils Absolute Auto 0.1 K/mm3 (0.0-0.1); Basophils Percent Auto 0.4 % (0.2-1.2); Eosinophils Absolute Auto 0.2 K/mm3 (0-0.3); Eosinophils Percent Auto 1.8 % (0-4.4); Hematocrit 32.7 % (37.0-47.0); Hemoglobin 10.5 g/dL (12.0-15.0); Immature Granulocyte Absolute 0.04 K/mm3 (0.00-0.031); Immature Granulocyte Percent A 0.3 % (0-0.5); Lymphocytes Absolute Auto 1.45 K/mm3 (0.9-3.2); Lymphocytes Percent Auto 12.1 % (18.3-44.2); Mean Corpuscular HGB Conc 32.1 g/dl (32-36); Mean Corpuscular Hemoglobin 29.2 pg (26-34); Mean Corpuscular Volume 91.1 fl (80-100); Mean Platelet Volume 10.4 fl (7.4-10.4); Monocytes Absolute Auto 0.8 K/mm3 (0.1-0.6); Neutrophils Absolute Auto 9.4 K/mm3 (1.3-6.7); Neutrophils Percent Auto 78.4 % (45.5-73.1); Platelet Count Result 223 k/mm3 (150-375); Red Blood Count 3.59 M/mm3 (4.2-5.4); Red Cell Distribution Width 13.1 % (11.5-14.5)
--- NOTE | 2022-03-24 07:34 | WPDANLDPN2 ---
Anes-Prog Note L&D Date/Time: 03/24/22 07:34 Comfortable throughout: section Neuraxial method: spinal Epidural/Spinal procedure site: clean & non-tender Neuro status: Neuro function grossly intact. Cardiovascular status: normal Respiratory status: normal Airway patency: baseline Mental status: baseline Post-Op hydration status: normal Vital Signs: Last Vital Signs Temp 36.3 C L 03/24/22 04:45 Pulse 86 03/24/22 04:45 Resp 18 03/24/22 04:45 BP 113/75 03/24/22 04:45 Pulse Ox 98 03/24/22 04:45 O2 Del Method Room Air 03/24/22 04:45 Pain score (VAS): 0 I/O: Intake & Output 03/23/22 03/23/22 03/24/22 15:59 23:59 07:59 Intake Total 2130 1130 300 Output Total 288 1000 1200 Balance 1842 130 -900 Post-procedural complaints: none Patient feedback: Patient satisfied with anesthetic care.
--- NOTE | 2022-03-24 07:34 | WPDANLDNPN2 ---
Anes-Prog Note L&D-Neuraxial Date/Time: 03/24/22 07:34 Neuraxial medications: intrathecal PF morphine Opiod-related complaints: none Patient feedback: Patient satisfied with post-operative pain management.
--- NOTE | 2022-03-24 08:04 | P.DS_ITS ---
DS: Admitting Diagnosis Discharge Date 03/25/2022 Admitting Diagnosis OB - DS: Summary OB Procedures : None OB Procedures Intrapartum: OB Procedures: : None Peripartum Data Procedures: Procedures Operation Date: 03/23/22 09:00 Actual Procedure Side Surgeon p Repeat Section Not Applicable Ryan Villanueva MD Time Spent with Patient Time attestation: Total time spent providing and/or coordinating discharge services: DS: Data Data Completed and Pending Labs on day of discharge: Labs from last 24 hours 03/24/22 03/23/22 04:16 07:32 WBC 12.0 H RBC 3.59 L Hgb 10.5 L Hct 32.7 L MCV 91.1 MCH 29.2 MCHC 32.1 RDW 13.1 Plt Count 223 MPV 10.4 Immature Gran % (Auto) 0.3 Neut % (Auto) 78.4 H Lymph % (Auto) 12.1 L [place] % (Auto) 7.0 Eos % (Auto) 1.8 Baso % (Auto) 0.4 Lymph # (Auto) 1.45 [place] # (Auto) 0.8 H Eos # (Auto) 0.2 Baso # (Auto) 0.1 Abs Immat Gran (auto) 0.04 H Absolute Neuts (auto) 9.4 H Absolute Nucleated RBC 0.0 Nucleated RBC % 0.0 Blood Type O Positive Antibody Screen Negative Discharge Plan Discharge Discharging Clinician: Ryan Villanueva Patient Disposition: Home, Self-Care Activity: as tolerated Diet: as tolerated Wound Care Instructions: incision open to air Discharge Instructions: clinton out next week in office Patient Instructions: Antibiotic Form Stand Alone Forms: General Discharge Information Follow-up/Referrals: Ryan Villanueva MD [Physician] - 3 Weeks Discharge Medications: New hydrocodone-acetaminophen 5-325 mg Tablet 1 tablet PO Q3H PRN (Reason: Moderate Pain (4-6)) Qty: 30 0RF ibuprofen 600 mg Tablet 600 mg PO Q6H PRN (Reason: Cramping) Qty: 30 0RF Continued PNV cmb#95-ferrous fumarate-FA [] 28 mg iron- 800 mcg Tablet 1 tablet PO DAILY Date of admission: 03/23/22 06:18 Primary Care Provider: UNKNOWN,DOCTOR Admitting Provider: Ryan Villanueva Attending physician on admission: Ryan Villanueva Condition: Stable
[2022-03-24 08:20] VITALS: BP 108/67; PULSE 72; RESP 18; TEMP 36.6; O2SAT 97
[2022-03-24 08:30] VITALS: PULSE 72; RESP 18; O2SAT 97
--- NOTE | 2022-03-24 08:30 | PC.NURSE ---
PT introductions made and plan of care discussed per post , post op c section, pain management, breast feeding, daily care activities. PT and spouse both recipients of such instructions and no barriers to learning noted at this time . PT received such instructions per one to one discussion, mom baby care guide and demonstrations this shift. PT verbalized understanding of such care.
[2022-03-24] MEDS: SIMETHICONE 80 MG TAB.CHEW PO ×2 (08:54→22:16)
[2022-03-24] MEDS: HYDROcodone/acetaminophen (*CRX) 5-325 MG TABLET 1 TAB PO ×3 (08:55→22:16)
[2022-03-24] MEDS: DOCUSATE SODIUM 100 MG CAPSULE PO ×2 (08:55→15:35)
[2022-03-24] MEDS: IBUPROFEN 600 MG TABLET PO ×3 (08:55→22:16)
[2022-03-24] MEDS: MULTIVIT/MIN/PREN/FOL AC/IRON TABLET 1 TAB PO (08:55)
--- NOTE | 2022-03-24 09:44 | PC.NURSE ---
[phone] Introductions were made, then consulted with patient to assess needs related to . Mother led the conversation with her?plans to feed?her infant and states the?experience so far has been going well with nursing [phone] without pain. (There's a little of tenderness that goes away after a few minutes) Resources provided for inpatient and outpatient services using a resource guide and mom/baby guide. Mother voiced understanding of information and will call if there is a request for assistance. Reported to primary RN.
[2022-03-24] MEDS: TETANUS,DIPHTHERIA,AC PERTUSSIS ADULT (0.5 ML) BOOSTRIX IM (15:35)
[2022-03-24 19:46] VITALS: BP 104/75; PULSE 56; RESP 18; TEMP 36.4; O2SAT 100
[2022-03-25] MEDS: IBUPROFEN 600 MG TABLET PO ×2 (04:40→10:14)
[2022-03-25 07:35] VITALS: BP 120/80; PULSE 63; RESP 18; TEMP 36.6; O2SAT 99
[2022-03-25] MEDS: DOCUSATE SODIUM 100 MG CAPSULE PO (07:45)
[2022-03-25] MEDS: HYDROcodone/acetaminophen (*CRX) 5-325 MG TABLET 1 TAB PO (10:14)
[2022-03-26 08:34] VITALS: BP 117/81; PULSE 75; RESP 20; TEMP 36.9; O2SAT 99
--- NOTE | 2022-03-31 09:22 | PM.OBDSVD ---
DS: Admitting Diagnosis Discharge Date 03/25/22 Admitting Diagnosis OB - DS: Summary OB Procedures : None OB Procedures Intrapartum: OB Procedures: : None Peripartum Data Procedures: Procedures Operation Date: 03/23/22 09:00 Actual Procedure Side Surgeon p Repeat Section Not Applicable Ryan Villanueva MD Time Spent with Patient Time attestation: Total time spent providing and/or coordinating discharge services: Discharge Plan Discharge Consulting providers: Lela Hussein ; Siva Al ; Sujatha Manuel Discharging Clinician: Ryan Villanueva Patient Disposition: Home, Self-Care Activity: as tolerated Diet: as tolerated Wound Care Instructions: incision open to air Discharge Instructions: Education: Mom and Baby Guide Given to: Mother Follow-Up: Call your delivering provider's office for an appointment to be seen in: 3 weeks Mom and baby [facility] the follow-up appointment. Appointment Date/Time: March 26, 2022 at 8:00 am What to expect at your follow-up visit: Blood Pressure Check Physical Assessment Call [phone] if you are unable to keep your appointment time. BREAST CARE: * Wear a snug supportive bra. * For engorgement discomfort: Breast Feeding: * Apply warm moist washcloths * Express milk as needed to relieve engorgement * Wear loose clothing * For sore nipples: * Identify correct latch-on * Apply warm moist washcloths before and after nursing * Air dry nipples after nursing * May apply Lansinoh cream to nipples ABDOMINAL INCISION: * Allow incision to air dry * Do NOT use lotions for powders on your incision * When showering, allow soap and water to run over the incision, but do not wash incision PERINEAL CARE: * Until bleeding stops, use your davey bottle after urinating * Change your pad frequently throughout the day * You may take sitz baths several times a day (fill your bathtub with warm water and soak for 20 minutes.) Do NOT bathe in the water * No tub baths until seen by your physician - You may shower ACTIVITY: * Rest as much as possible. * Do not exercise or lift anything heavier than your baby (such as laundry or other children.) * Avoid stairs or driving as much as possible. * Do not put anything into the vagina. No douching, tampons, or sexual activity until seen by physician. NOTIFY PHYSICIAN IF YOU HAVE ANY QUESTIONS OR IF ANY OF THE FOLLOWING SYMPTOMS OCCUR: * If your incision becomes red, swollen, or more painful than what you have experienced in the hospital. * If your vaginal bleeding becomes foul smelling. * If your vaginal bleeding becomes more heavy than a period or if your bleeding changes from pink to bright red. However, you may pass an occasional walnut-sized clot once or twice for the first week . * If you experience a sharp, shooting pain in you calves. * If you discover a hard, reddened area on your breast or if you experience flu-like symptoms. DIET: * Eat regular, well-balanced meals. * Drink plenty of fluids daily. If , drink to thirst. clinton out next week in office Patient Instructions: Antibiotic Form Stand Alone Forms: General Discharge Information Follow-up/Referrals: Ryan Villanueva MD [Physician] - 3 Weeks Discharge Medications: New hydrocodone-acetaminophen 5-325 mg Tablet 1 tablet PO Q3H PRN (Reason: Moderate Pain (4-6)) Qty: 30 0RF ibuprofen 600 mg Tablet 600 mg PO Q6H PRN (Reason: Cramping) Qty: 30 0RF Continued PNV cmb#95-ferrous fumarate-FA [] 28 mg iron- 800 mcg Tablet 1 tablet PO DAILY Date of admission: 03/23/22 06:18 Primary Care Provider: UNKNOWN,DOCTOR Admitting Provider: Ryan Villanueva Attending physician on admission: Ryan Villanueva Condition: Stable
== END 2022-03-25 10:22 | disposition home or self-care (01) | DRG 788 ==
LOC: ANHLDR 06:20 → ANHOB2 15:03
PROVIDERS: Admitting Provider Obstetrics & Gynecology; Visit Provider Obstetrics & Gynecology
PROC: 10D00Z1 Extraction of Products of Conception, Low, Open Approach (ICD-10-PCS; CPT 59514; principal; 2022-03-23 09:00)
DX: O34.219 Maternal care for unspecified type scar from previous cesarean delivery (principal); Z3A.39 39 weeks gestation of pregnancy; Z37.0 Single live birth
CPT/HCPCS: 36415; 85025; 86592; 86850; 86900; 86901; 90715; A9270; J1885; J2270; J2274; J2370; J2405; J2590; J7120